=== PATIENT | female | born 1990 | race American Indian/Alaskan Native ===

== ENCOUNTER 2019-06-16 15:33 | Outpatient (CLI) | payer OTHER ==
[2019-06-16 16:35] VITALS: BP 113/70
--- NOTE | 2019-06-16 17:06 | Ultrasound Report ---
US OB limited, US OB BPP wo non-stress INDICATION / CLINICAL INFORMATION: PEDRO. COMPARISON: None FINDINGS: Single, viable intrauterine . heart rate 120. Placenta is posterior. Amniotic fluid volume is normal, with a fluid index of 19 cm. Biparietal diameter 9.3 cm, 38 weeks 0 days. Head circumference 33.5 cm, 38 weeks 3 days. Abdominal circumference 35.4 cm, 39 weeks 0 days. Femur length 7.3 cm, 37 weeks 4 days. Biophysical profile: breathing movements: 2 movements: 2 posture and tone: 2 Amniotic fluid volume: 2 Total score biophysical profile: 8/8. IMPRESSION: 1. Single, viable 38 week 2 day intrauterine . 2. Amniotic fluid volume within normal limits, with a fluid index of 19 cm. 3. Biophysical profile score of 8/8. Signer Name: Edgar Ryder MD Signed: 06/16/2019 5:02 PM Workstation Name: [id number]
== END 2019-06-16 18:11 | disposition home or self-care (01) ==
LOC: TRG 15:33
PROVIDERS: ATTEND Obstetrics & Gynecology
DX: O47.1 False labor at or after 37 completed weeks of gestation (principal); Z3A.39 39 weeks gestation of pregnancy
CPT/HCPCS: 59025; 76815; 76816; 76819

== ENCOUNTER 2019-06-24 20:04 | Inpatient (IN) | payer OTHER ==
[2019-06-24] MEDS: LACTATED RINGERS 1,000 ML IV SCH ×3 (21:25→23:02)
[2019-06-24 21:27] LABS: Hematocrit 31.9 % (30.3-42.9); Hemoglobin 10.9 gm/dl (10.1-14.3); Mean Corpuscular HGB Conc 34 % (30-34); Mean Corpuscular Volume 94 fl (79-97); Platelet Count 280 K/mm3 (140-440); Red Blood Count 3.38 M/mm3 (3.65-5.03); Red Cell Distribution Width 14.3 % (13.2-15.2)
[2019-06-24] MEDS ORDERED: fentaNYL 100 MCG/2 ML INJ IV ONE (22:10)
[2019-06-24] MEDS ORDERED: BUTORPHANOL 2 MG/1 ML INJ IV PRN (22:10)
[2019-06-24] MEDS ORDERED: DEXMEDETOMIDINE 200 MCG/2 ML VIAL IV ONE (22:27)
--- NOTE | 2019-06-24 22:44 | Anesthesia Consultation ---
Anesthesia Consult and Med Hx Date of service: 06/24/19 - Airway Anesthetic Teeth Evaluation: Good ROM Head & Neck: Adequate Mental/Hyoid Distance: Adequate Mallampati Class: Class II Intubation Access Assessment: Good - Pulmonary Exam CTA: Yes - Cardiac Exam Cardiac Exam: RRR - Pre-Operative Health Status ASA Pre-Surgery Classification: ASA2, Emergency Proposed Anesthetic Plan: Epidural - Pulmonary Hx Asthma: No COPD: No Hx Pneumonia: No - Cardiovascular System Hx Hypertension: No - Central Nervous System Hx Seizures: No Hx Psychiatric Problems: No - Endocrine Hx Renal Disease: No Hx End Stage Renal Disease: No Hx Hypothyroidism: No Hx Hyperthyroidism: No - Hematic Hx Anemia: No Hx Sickle Cell Disease: No - Other Systems Hx Alcohol Use: No
[2019-06-24] MEDS ORDERED: NALOXONE 2 MG/2 ML INJ IV PRN (22:46)
[2019-06-24] MEDS ORDERED: ePHEDrine SULFATE 50 MG/1 ML INJ IV PRN (22:46)
--- NOTE | 2019-06-24 22:46 | Progress Note ---
Labor Epidural - Labor Epidural Start Time: 22:30 Stop Time: 22:37 Performed by:: ZOFIA MENDIETA Procedure: Patient is requesting a laboring epidural for laboring pain. Patient IDed, H&P reviewed, all questions and concerns were answered, and consent was signed. Timeout was performed at bedside. Patient in sitting position. Sterile prep and drape was performed. 3 ml of 1% lidocaine skin wheal at L 3- L 4. 18-gauge Touhy epidural needle was advanced to loss of resistance with air technique. Negative CSF negative blood. Epidural catheter advanced to 15 centimeters. Negative aspiration negative test dose. Sterile dressing applied. Patient tolerated procedure.
[2019-06-24] MEDS ORDERED: OXYTOCIN DRIP 30 UNITS/500 ML BAG IV SCH (23:00)
[2019-06-24] MEDS ORDERED: fentaNYL-BUPIV 2 MCG/ML-0.125% 200 MCG/100 ML BAG EPIDURAL SCH (23:00)
--- NOTE | 2019-06-24 23:25 | Ultrasound Report ---
US OB follow up INDICATION / CLINICAL INFORMATION: EFW and position. COMPARISON: None available. FINDINGS: A single live fetus of approximately 39 weeks 1 day gestational age is seen in cephalic presentation. The placenta is anterior, to the left, grade 1 and free of the os. PEDRO is 15.4, heart rate 129 and estimated birthweight 4065 g. BPD is 9.1 equals in 37 weeks 1 day Head circumference is 33.2 equals 37 weeks 6 days Abdominal circumference is 38.1 equals 42 weeks 0 days Femur length is 7.8 equals 39 weeks 5 days Cervical length is 3.1 cm IMPRESSION: Single live fetus of approximately 39 weeks 1 day gestational age in cephalic presentation. PEDRO is 15 .4, heart rate 129 and estimated birthweight 4065 g. Cervical length is 3.1 and there is no evidence of placental abruption Signer Name: Aleksey Petit MD FACNeo Signed: 06/24/2019 11:20 PM Workstation Name: [id number]
[2019-06-25] MEDS ORDERED: LIDOCAINE (2%) 20 MG/1 ML VIAL 20 ML MDV INFILTRATI ONE ×2 (01:28→09:26)
[2019-06-25] MEDS ORDERED: TERBUTALINE 1 MG/1 ML INJ SUB-Q PRN (01:28)
[2019-06-25] MEDS ORDERED: MINERAL OIL 30 ML ORAL LIQD PO PRN (01:28)
[2019-06-25] MEDS ORDERED: ONDANSETRON 4 MG/2 ML INJ IV PRN (01:28)
[2019-06-25] MEDS ORDERED: LACTATED RINGERS 1,000 ML IV SCH (02:00)
--- NOTE | 2019-06-25 02:06 | History and Physical Report ---
History of Present Illness Date of examination: 06/25/19 Date of admission: 06/24/19 20:04 Chief complaint: IOL secondary to post-dates History of present illness: 28 yo, @ 41 wks, initiated care with [facility] at 8 wks gestation. Her has been complicated by anemia, excessive maternal weight gain, and Vit D deficiency. She presents to [facility] for scheduled IOL secondary to post- date . She reports +FM. Denies VB or LOF. Labs: O+, antibody negative; PAP - ASCUS; Rubella immune; VDRL non-reactive; HBsAg negative; HIV negative platelets - 235; GC/Chlamydia/Trich negative; MSAFP negative; Vit D - 9.1; 1hr gtt - 106; GBS negative. Past History Past Medical History: no pertinent history Past Surgical History: no surgical history LOSS PREVENTION COORDINATOR History: abnormal PAP smear (ASCUS - 11/06/2018) Family/Genetic History: none Social history: single, full code. denies: smoking, alcohol abuse, prescription drug abuse, IV drug use - Obstetrical History Expected Date of Delivery: 06/18/19 Actual Gestation: 41 Week(s) 0 Day(s) : 1 Para: 0 Hx # Term Pregnancies: 0 Number of Pregnancies: 0 Spontaneous Abortions: 0 Induced : 0 Number of Living Children: 0 Medications and Allergies Allergies Allergy/AdvReac Type Severity Reaction Status Date / Time No Known Allergies Allergy Verified 06/24/19 21:15 Home Medications Medication Instructions Recorded Confirmed Last Taken Type [facility] Vitamins Tablet 1 tab PO 1XW 06/24/19 06/24/19 06/03/19 History Active Meds: Active Medications Butorphanol Tartrate (Stadol) 2 mg IV Q2H PRN PRN Reason: Labor Pain Ephedrine Sulfate (Ephedrine Sulfate) 10 mg IV Q2M PRN PRN Reason: Hypotension Last Admin: 06/24/19 22:55 Dose: 10 mg Documented by: Oxytocin/Sodium Chloride (Pitocin/Ns 30 Unit/500ml) 30 units in 500 mls @ 1 mls/hr IV TITR ZINA; Protocol Oxytocin/Sodium Chloride (Pitocin/Ns 20 Unit/1000ml Drip) 20 units in 1,000 mls @ 0 mls/hr IV DIRECT ZINA Fentanyl/Bupivacaine/Sodium Chlor (Fentanyl-Bupiv 2 Mcg/Ml-0.125%) 200 mcg in 100 mls @ 12 mls/hr EPIDURAL TITR ZINA; Protocol Last Admin: 06/24/19 23:07 Dose: 12 mls/hr Documented by: Lactated Ringer's (Lactated Ringers) 1,000 mls @ 125 mls/hr IV DIRECT ZINA Mineral Oil (Mineral Oil) 30 ml PO QHS PRN PRN Reason: Constipation Naloxone HCl (Naloxone) 0.2 mg IV Q5M PRN PRN Reason: Respiratory sedation Ondansetron HCl (Zofran) 4 mg IV Q8H PRN PRN Reason: Nausea And Vomiting Terbutaline Sulfate (Brethine) 0.25 mg SUB-Q ONCE PRN PRN Reason: Hyperstimulation/Hypertonicity Review of Systems All systems: negative Genitourinary: contractions - Vital Signs Vital signs: Vital Signs Pulse BP 97 H 125/67 06/24/19 20:16 06/24/19 20:16 Temp Pulse Resp BP Pulse Ox 82 18 155/113 65 L 06/25/19 01:40 06/24/19 23:22 06/25/19 01:35 06/25/19 01:40 - Physical Exam Breasts: Positive: normal Cardiovascular: Regular rate Lungs: Positive: Normal air movement Abdomen: Positive: other (gravid) Genitourinary (Female): Positive: normal external genitalia, normal perenium Vagina: Positive: normal moisture Uterus: Positive: enlarged (S>D) Anus/Rectum: Positive: normal perianal skin Extremities: Positive: edema (2+ BLE) Deep Tendon Reflex Grade: Normal +2 - Obstetrical FHR: category 1 Uterine Contraction Monitor Mode: External Cervical Dilatation: 8 (vertex) Cervical Effacement Percentage: 80 station: -1 Uterine Contraction Frequency (min): 2-4 Uterine Contraction Pattern: Irregular Uterine Tone Measurement Phase: Resting Uterine Contraction Intensity: Strong/Firm Results Result Diagrams: 06/24/19 20:56 Abnormal lab results 06/24/19 Range/Units 20:56 WBC 15.8 H (4.5-11.0) K/mm3 RBC 3.38 L (3.65-5.03) M/mm3 All other labs normal. Assessment and Plan - Patient Problems (1) Encounter for induction of labor Current Visit: Yes Status: Acute Plan to address problem: Admit to L&D Expectant management Pain meds as desired Anticipate (2) Anemia Current Visit: Yes Status: Acute Qualifiers: Anemia type: iron deficiency Plan to address problem: Oral iron supplementation PP
[2019-06-25] MEDS ORDERED: miSOPROStol 200 MCG TAB ONE (09:29)
[2019-06-25] MEDS ORDERED: miSOPROStol 200 MCG TAB PR SCH (09:30)
[2019-06-25] MEDS ORDERED: WITCH HAZEL/ GLYCERIN PAD TP PRN (10:31)
[2019-06-25] MEDS ORDERED: HYDROCORTISONE 25 MG RECTAL SUPP PR PRN (10:31)
[2019-06-25] MEDS ORDERED: LANOLIN/ZINC/DIMETHICONE (LANSINOH) 7 GM TP PRN (10:31)
[2019-06-25] MEDS ORDERED: diphenhydrAMINE 25 MG CAP PO PRN (10:31)
--- NOTE | 2019-06-25 10:44 | Procedure Note ---
OB Delivery Note - Delivery Date of Delivery: 06/25/19 (0919) Surgeon: SHALOM ESCOBAR Estimated blood loss: other (350) - Vaginal Delivery presentation: vertex Delivery position: OA Intrapartum events: none Delivery induction: none Delivery monitor: external FHT, external uterine Route of delivery: Delivery placenta: spontaneous Delivery cord: 3 umbilical vessels Episiotomy: none Delivery laceration: 2nd degree Delivery repair: vicryl Anesthesia: epidural Delivery comments: of a live 9'4 female infant over a 2nd degree vaginal wall laceration under epidural anesthesia with Apgars of 8 and 9 at 0919 on 06/25/2019. Infant directly to maternal abd/chest, skin to skin contact. Spontaneous delivery of placenta complete and intact with [place] side presenting at 0923. Fundus is firm and midline located 4 below the U. Lochia is scant. 800mcg of Cytotec placed per rectum after placental delivery. Vaginal wall lacerations repaired with 2-[address]-1 under local 2% Lidocaine. Delayed cord clamping and cutting; Cord cut by patient's mother. Cord blood collected. Placenta discarded. - A at 1 minute: 8 at 5 minutes: 9 Gender: Female (9'4)
[2019-06-25] MEDS: OXYTOCIN 20 UNIT/1000ML DRIP 20 UNITS/1,000 ML BAG IV SCH ×2 (11:12→11:13)
[2019-06-25] MEDS: IBUPROFEN 600 MG TAB PO SCH ×2 (11:47→21:56)
[2019-06-25] MEDS: FERROUS SULFATE 325 MG TAB PO SCH ×2 (11:50→21:56)
[2019-06-25] MEDS: HYDROcodone/ACETAMINOPHEN 5-325 MG TAB PO PRN ×2 (15:25→23:58)
--- NOTE | 2019-06-25 17:50 | Progress Note ---
Subjective Date of service: 06/25/19 Interval history: 1st day after Patient is active, ambulates well. No pain. Site is intact. No residual neurological deficit. No anesthesia complications Objective - Constitutional Vitals: Vital Signs - 12hr 06/25/19 06/25/19 06/25/19 05:52 05:54 05:57 Temperature Pulse Rate 105 H 109 H 112 H Respiratory Rate Blood Pressure 110/61 O2 Sat by Pulse 100 99 Oximetry 06/25/19 06/25/19 06/25/19 06:02 06:06 06:07 Temperature Pulse Rate 103 H 106 H 111 H Respiratory Rate Blood Pressure 115/68 O2 Sat by Pulse 99 99 Oximetry 06/25/19 06/25/19 06/25/19 06:12 06:16 06:17 Temperature Pulse Rate 103 H 104 H 105 H Respiratory Rate Blood Pressure 110/69 O2 Sat by Pulse 99 99 Oximetry 06/25/19 06/25/19 06/25/19 06:22 06:26 06:27 Temperature Pulse Rate 99 H 103 H 102 H Respiratory Rate Blood Pressure 110/70 O2 Sat by Pulse 99 99 Oximetry 06/25/19 06/25/19 06/25/19 06:32 06:37 06:42 Temperature Pulse Rate 107 H 114 H 107 H Respiratory Rate Blood Pressure O2 Sat by Pulse 98 99 100 Oximetry 06/25/19 06/25/19 06/25/19 06:45 06:47 06:52 Temperature Pulse Rate 102 H 104 H 104 H Respiratory Rate Blood Pressure 108/63 O2 Sat by Pulse 100 100 Oximetry 06/25/19 06/25/19 06/25/19 06:56 06:57 07:02 Temperature Pulse Rate 117 H 110 H 111 H Respiratory Rate Blood Pressure 105/72 O2 Sat by Pulse 100 100 Oximetry 06/25/19 06/25/19 06/25/19 07:04 07:07 07:12 Temperature Pulse Rate 109 H 118 H 105 H Respiratory Rate Blood Pressure 109/67 O2 Sat by Pulse 100 99 Oximetry 06/25/19 06/25/19 06/25/19 07:15 07:17 07:22 Temperature 98.0 F Pulse Rate 110 H 110 H 111 H Respiratory 16 Rate Blood Pressure 110/68 O2 Sat by Pulse 100 100 Oximetry 06/25/19 06/25/19 06/25/19 07:25 07:27 07:30 Temperature Pulse Rate 110 H 112 H Respiratory 16 Rate Blood Pressure 110/69 110/69 O2 Sat by Pulse 100 Oximetry 06/25/19 06/25/19 06/25/19 07:32 07:35 07:37 Temperature Pulse Rate 112 H 110 H 107 H Respiratory Rate Blood Pressure 109/69 O2 Sat by Pulse 99 100 Oximetry 06/25/19 06/25/19 06/25/19 07:42 07:47 07:52 Temperature Pulse Rate 132 H 121 H 120 H Respiratory Rate Blood Pressure 99/64 O2 Sat by Pulse 94 90 99 Oximetry 06/25/19 06/25/19 06/25/19 07:55 07:57 08:02 Temperature Pulse Rate 109 H 117 H 113 H Respiratory Rate Blood Pressure 129/70 O2 Sat by Pulse 100 100 Oximetry 06/25/19 06/25/19 06/25/19 08:05 08:07 08:12 Temperature Pulse Rate 115 H 109 H 117 H Respiratory Rate Blood Pressure 120/66 O2 Sat by Pulse 100 100 Oximetry 06/25/19 06/25/19 06/25/19 08:15 08:17 08:22 Temperature Pulse Rate 118 H 118 H 122 H Respiratory Rate Blood Pressure 109/56 O2 Sat by Pulse 100 100 Oximetry 06/25/19 06/25/19 06/25/19 08:24 08:27 08:32 Temperature Pulse Rate 121 H 131 H 123 H Respiratory Rate Blood Pressure 113/55 O2 Sat by Pulse 99 100 Oximetry 06/25/19 06/25/19 06/25/19 08:37 08:42 08:45 Temperature Pulse Rate 96 H 116 H 118 H Respiratory Rate Blood Pressure 123/58 O2 Sat by Pulse 100 100 Oximetry 06/25/19 06/25/19 06/25/19 08:47 08:49 08:52 Temperature Pulse Rate 106 H 116 H 113 H Respiratory Rate Blood Pressure O2 Sat by Pulse 100 73 L 100 Oximetry 06/25/19 06/25/19 06/25/19 08:54 08:56 08:57 Temperature Pulse Rate 118 H 111 H 105 H Respiratory Rate Blood Pressure 85/45 O2 Sat by Pulse 85 100 Oximetry 06/25/19 06/25/19 06/25/19 09:31 09:32 09:37 Temperature Pulse Rate 129 H 126 H 124 H Respiratory Rate Blood Pressure 108/58 O2 Sat by Pulse 98 96 Oximetry 06/25/19 06/25/19 06/25/19 09:42 09:43 09:46 Temperature Pulse Rate 122 H 127 H 125 H Respiratory Rate Blood Pressure 118/53 O2 Sat by Pulse 99 89 Oximetry 06/25/19 06/25/19 06/25/19 10:01 10:16 10:31 Temperature Pulse Rate 126 H 115 H 122 H Respiratory Rate Blood Pressure 128/60 141/78 111/64 O2 Sat by Pulse Oximetry 06/25/19 06/25/19 06/25/19 10:46 11:01 11:16 Temperature Pulse Rate 122 H 105 H 106 H Respiratory Rate Blood Pressure 89/42 161/79 143/70 O2 Sat by Pulse Oximetry 06/25/19 06/25/19 06/25/19 12:30 12:46 15:07 Temperature 98.8 F 97.6 F Pulse Rate 101 H 86 Respiratory 18 Rate Blood Pressure 123/75 117/66 O2 Sat by Pulse 98 98 Oximetry - Labs CBC & Chem 7: 06/24/19 20:56 Labs: Abnormal lab results 06/24/19 Range/Units 20:56 WBC 15.8 H (4.5-11.0) K/mm3 RBC 3.38 L (3.65-5.03) M/mm3
--- NOTE | 2019-06-25 18:03 | Progress Note ---
Labor Epidural - Labor Epidural Start Time: 11:37 Stop Time: 11:52 Performed by:: Davonte Estrada Procedure: Patient requesting epidural for labor pain. Patient interviewed, IDed, consent signed. In the sterile conditions under local anesthesia 18G needle is placed in L3-L4 epidural space using water resistance technique. Spinal G27 needle is directed through the spinal membrane. Injected .5cc .75% Marcaine intrathecally. Epidural catheter passed to 16cm manasa. Negative aspiration test and test dose. Tolerated well
[2019-06-25 23:36] LABS: Hematocrit 26.3 % (30.3-42.9); Hemoglobin 8.9 gm/dl (10.1-14.3)
[2019-06-26] MEDS: IBUPROFEN 600 MG TAB PO SCH ×4 (03:33→23:11)
[2019-06-26] MEDS: PRENATAL VIT27-FE FUMARATE-FOLIC ACID VIT TAB PO SCH (09:50)
[2019-06-26] MEDS: FERROUS SULFATE 325 MG TAB PO SCH ×2 (09:50→23:11)
--- NOTE | 2019-06-26 10:01 | Progress Note ---
Assessment and Plan - Patient Problems (1) Status post normal vaginal delivery Current Visit: Yes Status: Acute Plan to address problem: PPD 1 - stable Continue routine orders Discharge to home today Follow-up at [facility] as needed or in 6 weeks for exam (2) Single live Current Visit: Yes Status: Acute (3) Anemia due to blood loss, acute Current Visit: Yes Status: Acute Plan to address problem: Asymptomatic Continue iron therapy Subjective - Subjective Date of service: 06/26/19 Principal diagnosis: PPD #1; s/p Interval history: see [facility]-H&P and OB Delivery Procedure Note Patient reports: appetite normal, voiding normally, pain well controlled, ambulating normally, no dizzy ambulation [place]: doing well, other (breast and bottle feeding) Objective - Vital Signs Latest vital signs: Vital Signs Temp Pulse Resp BP Pulse Ox 06/26/19 08:19 97.8 F 85 20 97/68 97 06/26/19 02:37 97.3 F L 95 H 18 103/62 97 06/25/19 21:49 98.4 F 104 H 20 113/63 98 06/25/19 15:07 97.6 F 86 18 117/66 98 06/25/19 12:46 101 H 123/75 98 06/25/19 12:30 98.8 F 06/25/19 11:16 106 H 143/70 06/25/19 11:01 105 H 161/79 06/25/19 10:46 122 H 89/42 06/25/19 10:31 122 H 111/64 06/25/19 10:16 115 H 141/78 06/25/19 10:01 126 H 128/60 Intake and Output 06/25/19 06/26/19 06/26/19 23:59 07:59 15:59 Intake Total 600 480 Output Total 1200 Balance -600 480 Intake: Oral 120 Intake, Free Water 480 480 Output: Urine 1200 Void 1200 Other: Total, Intake Amount 120 Total, Output Amount 800 # Voids Void 2 - Exam Cardiovascular: Present: Regular rate Lungs: Present: Clear to auscultation Abdomen: Present: normal appearance, soft Vulva: both: laceration/episiotomy (well approximated) Uterus: Present: normal, firm, fundal height below umbilicus Extremities: Present: normal Comments: scant lochia - Labs Labs: Abnormal lab results 06/25/19 Range/Units 23:11 Hgb 8.9 L (10.1-14.3) gm/dl Hct 26.3 L (30.3-42.9) %
--- NOTE | 2019-06-26 10:04 | Discharge Summary ---
Providers - Providers Date of Admission: 06/24/19 20:04 Date of discharge: 06/26/19 Attending physician: YG CERVANTES MD Primary care physician: YG CERVANTES MD Hospitalization Reason for admission: active labor, IUP at term Delivery: Episiotomy: none Laceration: 2nd degree Other procedures: none complications: none Discharge diagnosis: IUP at term delivered baby: female Hospital course: Uncomplicated Condition at discharge: Stable Disposition: DC-01 TO HOME OR SELFCARE - Discharge Diagnoses (1) Status post normal vaginal delivery Status: Acute (2) Single live Status: Acute (3) Anemia due to blood loss, acute Status: Acute Comment: Asymptomatic Continue taking iron pills Eat iron-rich foods Plan - Discharge Medications Prescriptions: Ferrous Sulfate [Feosol 325 MG tab] 325 mg PO BID #60 tablet - Provider Discharge Summary Activity: routine, no sex for 6 weeks, no heavy lifting 4 weeks, no strenuous exercise Diet: routine Instructions: routine Additional instructions: [] Smoking cessation referral if applicable(refer to patient education folder for contact #) [] Refer to [facility] Call your doctor immediately for: * Fever > 100.5 * Heavy vaginal bleeding ( >1 pad per hour) * Severe persistent headache * Shortness of breath * Reddened, hot, painful area to leg or breast * Drainage or odor from incision. * Keep incision clean and dry at all times and follow doctor's instructions regarding bathing/showering - Follow up plan Follow up: YG CERVANTES MD [Primary Care Provider] - 6 Weeks (Follow-up at [facility] as needed or in 6 weeks for exam)
[2019-06-27 08:20] VITALS: BP 107/72
[2019-06-27] MEDS: IBUPROFEN 600 MG TAB PO SCH (10:25)
[2019-06-27] MEDS: PRENATAL VIT27-FE FUMARATE-FOLIC ACID VIT TAB PO SCH (10:25)
[2019-06-27] MEDS: FERROUS SULFATE 325 MG TAB PO SCH (10:25)
== END 2019-06-27 11:30 | disposition home or self-care (01) | DRG 806 ==
LOC: LD 20:04 → OB 06-25 12:55
PROVIDERS: ADMIT Obstetrics & Gynecology; ATTEND Obstetrics & Gynecology
PROC: 10E0XZZ Delivery of Products of Conception, External Approach (ICD-10-PCS; principal; 2019-06-25)
PROC: 0KQM0ZZ Repair Perineum Muscle, Open Approach (ICD-10-PCS; 2019-06-25)
PROC: 3E0R3BZ Introduction of Anesthetic Agent into Spinal Canal, Percutaneous Approach (ICD-10-PCS; 2019-06-25)
PROC: 00HU33Z Insertion of Infusion Device into Spinal Canal, Percutaneous Approach (ICD-10-PCS; 2019-06-25)
DX: O48.0 Post-term pregnancy (principal); D62 Acute posthemorrhagic anemia; Z37.0 Single live birth; Z3A.41 41 weeks gestation of pregnancy; O90.81 Anemia of the puerperium; O70.1 Second degree perineal laceration during delivery
CPT/HCPCS: 36415; 76816; 85014; 85018; 85027; 86592; 86850; 86900; 86901; G0378; J2405; J2590; J3010; J3490; J7120